=== PATIENT | female | born 1950 | race Caucasian/White ===

== ENCOUNTER 2016-05-09 | Observation (INO) | payer OTHER ==
[2016-05-09 19:04] LABS: HEMOGLOBIN 15.2 gm/dl (12.3-15.3); WHITE BLOOD COUNT 9.8 K/UL (4.5-11.0)
[2016-05-09 19:27] LABS: BUN/CREATININE RATIO 23 (0-10)
[2016-05-10] MEDS ORDERED: CLARITIN10 M2 PO (00:09)
[2016-05-10] MEDS ORDERED: SYNTHROID88 MCG PO (00:09)
[2016-05-10] MEDS ORDERED: GARLIC1000 MG PO (00:09)
[2016-05-10] MEDS ORDERED: METAMUCIL0.52 GM PO (00:10)
[2016-05-10] MEDS ORDERED: TAMIFLU75 MG PO (14:22)
[2016-05-10] MEDS ORDERED: PROVENTIL HFA 61 INH INH (14:23)
[2016-05-10] MEDS ORDERED: PREDNISONE 20 M20 MG PO (14:23)
== END 2016-05-10 15:00 | disposition home or self-care (01) ==
PROVIDERS: Physician Assistant; ADMIT Internal Medicine
DX: J10.1 Influenza due to other identified influenza virus with other respiratory manifestations (principal); J44.1 Chronic obstructive pulmonary disease with (acute) exacerbation; E03.9 Hypothyroidism, unspecified; Z85.3 Personal history of malignant neoplasm of breast; Z87.891 Personal history of nicotine dependence; Z82.5 Family history of asthma and other chronic lower respiratory diseases; Z79.899 Other long term (current) drug therapy; Z90.710 Acquired absence of both cervix and uterus; Z98.890 Other specified postprocedural states
CPT/HCPCS: 36415; 36600; 71020; 80053; 81001; 82550; 82553; 82803; 83605; 83735; 83874; 83880; 84484; 85025; 85379; 87040; 87081; 87086; 87880; 93005; 94640; 94664; 96361; 96374; 99284; G0378; J2930

== ENCOUNTER → 2016-08-17 | Outpatient (CLI) | payer OTHER ==
[~2016-08-17] MED LIST: CLARITIN10 M2 PO; GARLIC1000 MG PO; METAMUCIL0.52 GM PO; PREDNISONE 20 M20 MG PO; PROVENTIL HFA 61 INH INH; SYNTHROID88 MCG PO; TAMIFLU75 MG PO
[2016-08-17 13:46] LABS: HEMOGLOBIN 14.8 gm/dl (12.3-15.3); RED BLOOD COUNT 4.94 M/UL (4.00-5.10); WHITE BLOOD COUNT 5.9 K/UL (4.5-11.0)
[2016-08-17 14:06] LABS: BUN/CREATININE RATIO 28 (0-10)
== END ==
LOC: LAB 12:56
PROVIDERS: Internal Medicine Hematology & Oncology
DX: D05.12 Intraductal carcinoma in situ of left breast (principal)
CPT/HCPCS: 80053; 85025

== ENCOUNTER → 2016-11-23 | Outpatient (CLI) | payer OTHER ==
[2016-11-23 13:56] LABS: HEMOGLOBIN 14.5 gm/dl (12.3-15.3); RED BLOOD COUNT 4.78 M/UL (4.00-5.10); WHITE BLOOD COUNT 5.6 K/UL (4.5-11.0)
[2016-11-23 14:08] LABS: BUN/CREATININE RATIO 27 (0-10)
== END ==
LOC: LAB 12:58
PROVIDERS: Internal Medicine Hematology & Oncology
DX: D05.12 Intraductal carcinoma in situ of left breast (principal)
CPT/HCPCS: 36415; 80053; 85025